=== PATIENT | male | born 1995 | race Caucasian/White ===

== ENCOUNTER 2017-11-07 08:21 | Emergency (ER) | payer BC, OTHER, SELFPAY ==
--- NOTE | 2017-11-07 08:21 | DT_ITS ---
This patient was seen during an EMR downtime November 03, 2017 - November 10, 2017. This patient may have a combination of paper and electronic documentation or all paper documentation. All documentation is viewable within the e-chart portion of [employer] for each patient visit.
--- NOTE | 2017-11-07 08:30 | RAD_ITS ---
STUDY: X-RAY - RIGHT ANKLE REASON FOR EXAM: Male, 22 years old. Twisted ankle. TECHNIQUE: 3 view(s) of the ankle. COMPARISON: None. FINDINGS: Normal visualized distal tibia and fibula. Normal medial and lateral malleoli. Normal tibiotalar articulation and ankle mortise. There appears to be medial dislocation of the subtalar articulations. No obvious calcaneal or talar fracture. The visualized talonavicular, calcaneocuboid and tarsal articulations are normal. There is diffuse soft tissue swelling. RAD/Ankle min 3 Views IMPRESSION: Question medial dislocation of the subtalar articulations of the hindfoot. Electronically Signed: Wolf Godoy DO at 16:01 EDT Tel [phone], Service support ,
--- NOTE | 2017-11-07 09:05 | RAD_ITS ---
STUDY: X-RAY - RIGHT ANKLE REASON FOR EXAM: Male, 22 years old. Post reduction TECHNIQUE: 3 view(s) of the ankle. COMPARISON: 11/07/2017 FINDINGS: Evaluation is limited by the overlying cast. The previously seen dislocation has been reduced. No fracture is identified. There are no radiodense foreign bodies. RAD/Ankle min 3 Views IMPRESSION: Reduction of the previously seen dislocation. Evaluation limited by the overlying cast, but no fracture is identified. Electronically Signed: Yaya Alcocer, at 18:54 EDT Tel , Service support ,
== END 2017-11-07 10:10 | disposition home or self-care (01) ==
PROVIDERS: Emergency Provider Emergency Medicine
DX: S93.304A Unspecified dislocation of right foot, initial encounter (principal); X50.1XXA Overexertion from prolonged static or awkward postures, initial encounter; Y93.9 Activity, unspecified; Y92.9 Unspecified place or not applicable; Y99.9 Unspecified external cause status
CPT/HCPCS: 28540; 73610; 96361; 96374; 96375; 99143; 99285; J2405

== ENCOUNTER → 2017-11-11 09:37 | Outpatient (CLI) | payer BC, OTHER, SELFPAY ==
--- NOTE | 2017-11-11 09:40 | RAD_ITS ---
STUDY: X-RAY - RIGHT ANKLE REASON FOR EXAM: Previous dislocation. TECHNIQUE: 3 view(s) of the ankle. COMPARISON: Radiographs 11/07/2017. FINDINGS: Normal visualized distal tibia and fibula. Normal medial and lateral malleoli. Normal tibiotalar articulation and ankle mortise. Normal visualized talus and calcaneus. The visualized subtalar, talonavicular, calcaneocuboid and tarsal articulations are normal. There is no overlying cast. RAD/Ankle min 3 Views IMPRESSION: Continued reduction of the swivel dislocation of the talonavicular joint. Electronically Signed: Tigre Kim MD at 10:40 EDT Tel , Service support ,
== END ==
PROVIDERS: Visit Provider Orthopaedic Surgery
DX: S93.04XA Dislocation of right ankle joint, initial encounter (principal)
CPT/HCPCS: 73610

== ENCOUNTER → 2017-12-16 10:19 | Outpatient (CLI) | payer OTHER, BC, SELFPAY ==
--- NOTE | 2017-12-16 10:21 | RAD_ITS ---
STUDY: X-RAY - RIGHT ANKLE REASON FOR EXAM: Male, 22 years old. Follow up dislocation TECHNIQUE: Three view(s) of the ankle were obtained. COMPARISON: November 11, 2017 FINDINGS: Bones: There are no acute osseous abnormalities. Joints: The visualized joints are unremarkable. Soft tissues: The soft tissues are unremarkable. There is overlying cast material. RAD/Ankle min 3 Views IMPRESSION: No acute abnormalities are seen. The appearance is stable. Electronically Signed: Hanh Gomez MD at 0:03 EDT Tel Direct: [phone], Service support ,
== END ==
PROVIDERS: Visit Provider Physician Assistant
DX: M25.571 Pain in right ankle and joints of right foot (principal)
CPT/HCPCS: 73610

== ENCOUNTER → 2017-12-23 06:40 | Outpatient (CLI) | payer OTHER, BC, SELFPAY ==
--- NOTE | 2017-12-23 06:42 | MRI_ITS ---
STUDY: MRI RIGHT ANKLE WITHOUT CONTRAST REASON FOR EXAM: Posterior pain, dislocation 6 weeks ago. TECHNIQUE: Standardized fat and water weighted pulse sequences were obtained in all 3 orthogonal planes. COMPARISON: Radiographs 12/16/2017 and 11/07/2017. FINDINGS: There is edema in the medial subcutis adipose space. Normal posterior tibialis tendon. Normal flexor digitorum longus tendon. Normal flexor hallucis longus tendon. Normal peroneus longus and brevis tendons. Normal tibialis anterior tendon. Normal extensor hallucis longus tendon. Normal extensor digitorum longus tendons. Normal Achilles tendon and teno-osseous insertion. Normal plantar fascia. Normal plantar calcaneal tubercles. Normal intrinsic muscles of the rearfoot. Normal distal tibiofibular syndesmotic ligamentous complex. There is a sprain of the anterior talofibular ligament (inversion recovery axial oblique series 7 image 14). There is a sprain of the calcaneofibular ligament (inversion recovery oblique series 7 image 17). Normal subtalar ligaments and sinus tarsi. Normal deltoid ligamentous complexes. Normal plantar calcaneonavicular (spring) ligament. Normal tibiotalar articulation. Normal talar dome. Normal subtalar articulations. Normal talonavicular articulation. There is a small calcaneocuboid joint effusion (inversion recovery sagittal images 6, 7). Normal navicular-cuneiform articulations. There is a bone contusion of the talar head, medial neck of the talus and medial posterior body of the talus (inversion recovery sagittal images 11-14). There is a mild bone contusion of the medial malleolus (T2 coronal images 15, 16). There is a suspected nondisplaced healing fracture of the sustentaculum isadora (T2 coronal image 14). There are scattered foci of increased T2 signal in the distal tibia, distal fibula and tarsal bones consistent with disuse osteoporosis. MRI/Lower Ext Joint Only (Routine) IMPRESSION: Sprains of the anterior talofibular and calcaneofibular ligaments. Bone contusions of the talus and medial malleolus. Suspected nondisplaced healing fracture of the sustentaculum isadora. Small calcaneocuboid joint effusion. Electronically Signed: Tigre Kim MD at 9:05 EDT Tel , Service support ,
== END ==
PROVIDERS: Visit Provider Physician Assistant
DX: S93.04XA Dislocation of right ankle joint, initial encounter (principal)
CPT/HCPCS: 73721

== ENCOUNTER → 2018-02-05 09:02 | Outpatient (CLI) | payer BC, OTHER, SELFPAY | PROVIDERS: Visit Provider Physician Assistant | DX: S93.04XA Dislocation of right ankle joint, initial encounter (principal) | CPT/HCPCS: 73610 ==

== ENCOUNTER 2018-03-05 13:00 | Outpatient (RCR) | payer OTHER, BC, SELFPAY ==
--- NOTE | 2017-12-30 10:02 | HP.PTEVAL_ITS ---
Patient's Visit Information HECTOR GARCIA is a 22 year old M referred to Physical Therapy by BRIAN Amor with a diagnosis of Right ankle dislocation with healing talus fracture. Date of Evaluation: 12/30/17 Physical Therapist: Jacqueline José - Visit Plan Frequency: 2x /Week Duration: 4 Weeks Plan: Hold until WB status changes - Subjective Subjective: Got his boot stuck in a trailer door about 7 weeks ago- went to the ER- took x-rays was placed in a splint and sent him to Dr. Abbott- was in a cast for 6 weeks- had an MRI- then she took the cast off. He is currently in a boot and was told partial weight bearing- 6 weeks. If he puts any weight on it it sends sharp pains through the foot. Worst: 8/10 Agg: putting weight through it. Eases: getting off of it Best: 0/10- describes the pain as sharp/ shooting. The pain is in the arch of the foot and the lateral aspect of the ankle. No radiating pain. No N/T. 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 Sleep: does not sleep in his boot and does not wake him up. PMHx : none Meds: none. - Objective Posture: good throughout session. Gait: axillary crutches- PWB with CAM walker on the right LE. Edema: Figure 8: 54 cm Mall: 27.5 cm Mets:23 cm. Palpation: tender along lateral malleolus and arch of the right foot. ROM: DF: neutral, PF : 20 degrees, Inv: 20 degrees, Ever: 10 degrees. Flex: Gastroc: severe, Soleus : mod. Strength: 3+/5 throughout available range. - Goals Goal 1:: Patient will be I with HEP and progression Goal Time Frame: 4-6 Weeks Goal 2:: Patient will demo full AROM of the ankle where deficit to ease ADL's. Goal Time Frame: 4-6 Weeks Goal 3:: Patient will SLS for 30 sec without LOB (as per WB status changes) Goal Time Frame: 4-6 Weeks Goal 4:: Patient will ambulate >300 feet with a normalized gait pattern (as per wb status change) Goal Time Frame: 4-6 Weeks - Rehabilitation Potential Physical Therapy Diagnosis: Patient presents with hypomobility- he has decreased ROM, strength and muscular endurance leading to abnormal gait and decreased stability- WB status is PWB Rehabilitation Potential: Good - Anticipated Interventions Patient/Client Instruction: Educate patient on: Benefits of Fitness Program Therapeutic Exercise to Include: Strength training, Endurance training, Balance training, Agility training, Body mechanics, Flexibilty training, Gait and locomotor training, Passive ROM, Active ROM For the Purpose of:: To improve muscle performance and motor function Thank you for the opportunity to evaluate your patient. For Medicare and Medicare HMO plans, please review the plan of care and approve it. It will need to be FAXED BACK to us at [phone] for Medicare purposes. Please let me know if there are questions or concerns regarding this plan of care. Physician Signature: Date:
--- NOTE | 2018-02-13 12:23 | HP.PTREVAL_ITS ---
BRIAN Amor, It has been my pleasure to treat HECTOR GARCIA over the last 2 visits for Right ankle dislocation with healing talus fracture. Please see the progress note below for an update on the physical therapy plan of care! Subjective: Patient reports now able to walk but fearful of running. Last time able to run was in November. Reports splitting wood yesterday and his ankle feeling sore today but less than a 4/10. Pt. has not returned to work. No restrictions from physician-patient dictates activity tolerance. Objective/Function: Gait: decreased heel and toe rocker R foot. Observation: well healed. AROM: ankle PF: 30 degrees, DF 20 degrees, inversion 30 degrees, eversion 10 degrees. Girth: R ankle 54 cm figure 8, 23cm malleolar. Strength: Ankle 5/5 throughout. Plan Plan: Focus on SL proprioception, R ankle mobility, decrease fear of balancing, and gait with correct heel to toe form. Goals Goal 1:: Patient will be I with HEP and progression Goal Time Frame: 4-6 Weeks Goal 2:: Patient will demo full AROM of the ankle where deficit to ease ADL's. Goal Time Frame: 4-6 Weeks Goal Progress: Progressing Goal 3:: Patient will SLS for 30 sec without LOB (as per WB status changes) Goal Time Frame: 4-6 Weeks Goal 4:: Patient will ambulate >300 feet with a normalized gait pattern (as per wb status change) Goal Time Frame: 4-6 Weeks Goal Progress: Progressing Anticipated Interventions Patient/Client Instruction: Educate patient on: Benefits of Fitness Program Therapeutic Exercise to Include: Strength training, Endurance training, Balance training, Agility training, Body mechanics, Flexibilty training, Gait and locomotor training, Passive ROM, Active ROM For the Purpose of:: To improve muscle performance and motor function Please do not hesitate to contact me at [phone] by phone or Fax: if you have questions or concerns regarding this new plan of care! Sincerely, Jacqueline José
--- NOTE | 2018-03-05 13:50 | HP.PTDCSUM ---
HP - PT D/C Summary It has been my pleasure to treat HECTOR GARCIA under orders from BRIAN Amor, for the diagnosis of Right ankle dislocation with healing talus fracture for a total of 7 visit(s). Discharge Date: Please see the following information for a summary of their discharge status. - Subjective Subjective: Overall ankle not bad, can bend and lift at work. Last week jogging was difficult and awkward, but not painful. Has not ran 100% yet. 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 Walking can feel a little but nothing like used to be. No pain currently. No pain within last week, just sore after heavy activity. Ice helps swelling after hard work. New shoes working out great. Able to walk up the stairs. Balance feels much better. No numbness tingling. Running only activity still want to improve on. Feels 70% better. Does not do HEP. - Pain Right Ankle Pain Intensity (Out of 10): 3 - Overall Improvement % Improvement: 70 - Objective Objective/Function: Gait: WNL-walking with heel to toe contact much better than last re-eval. Stairs: WNL reciprocally no HR with good form. Observation: mild residual swelling R lat. ankle distal to malleoli, no discoloration. AROM: R ankle WFL; DF 20 deg, PF 24 deg. Mid malleolar girth: 23 cm, Figure 8: 51 cm. Strength: ankle 5/5 throughout bilat. Balance: SLbilat. 30 seconds no UE support - Goals Goal 1:: Patient will be I with HEP and progression Goal Progress: Goal Met Goal 2:: Patient will demo full AROM of the ankle where deficit to ease ADL's. Goal Progress: Goal Met Goal 3:: Patient will SLS for 30 sec without LOB (as per WB status changes) Goal Progress: Goal Met Goal 4:: Patient will ambulate >300 feet with a normalized gait pattern (as per wb status change) Goal Progress: Goal Met - Plan Plan: D/C patient to I HEP. - D/C Information If there are questions or concerns regarding this patient's physical therapy, please feel free to call me at [phone]. Thank you for the referral of this patient. Sincerely, Jacqueline José
== END 2018-03-05 19:00 | disposition home or self-care (01) ==
LOC: PT 13:00
PROVIDERS: Visit Provider Physician Assistant
DX: S92.101D Unspecified fracture of right talus, subsequent encounter for fracture with routine healing (principal)
CPT/HCPCS: 97110; 97161; 97164